=== PATIENT | female | born 1960 | race Two or more races ===

== ENCOUNTER 2025-04-25 09:53 | Outpatient (REF) | payer MEDICARE, SELFPAY ==
--- NOTE | 2025-04-25 09:59 | EMG_ITS ---
Chief complaint: Pruritus, numbness 4th and 5th digits bilateral, neck pain Reason for referral: Evaluate for Carpal Tunnel Syndrome, ulnar neuropathy versus cervical radiculopathy Referred by: Sayra AMANDA Procedure done: Bilateral upper extremities NCS/EMG Precautions and/or limitations: None The limb temperature was monitored continuously and remained between 32-36 degrees C during the performance of the NCS. Nerve Conduction Studies Anti Sensory Summary Table ?Stim Site NR Onset (ms) Norm Onset (ms) Peak (ms) Norm Peak (ms) O-P Amp (?V) Norm O-P Amp Site1 Site2 Delta-0 (ms) Dist (cm) Jimy (m/s) Norm Jimy (m/s) Left Median Anti Sensory (2nd Digit) Wrist ? 2.5 3.3 <3.6 19.0 >10 Wrist 2nd Digit 2.5 14.0 56 Right Median Anti Sensory (2nd Digit) Wrist ? 2.6 3.4 <3.6 40.3 >10 Wrist 2nd Digit 2.6 14.0 54 Right Radial Anti Sensory (Thumb) Forearm ? 1.8 2.3 <3.1 22.1 Forearm Thumb 1.8 0.0 Left Ulnar Anti Sensory (5th Digit) Wrist ? 2.4 3.6 <3.7 37.4 >15.0 Wrist 5th Digit 2.4 14.0 58 Right Ulnar Anti Sensory (5th Digit) Wrist ? 2.5 3.3 <3.7 36.5 >15.0 Wrist 5th Digit 2.5 14.0 56 Motor Summary Table ?Stim Site NR Onset (ms) Norm Onset (ms) O-P Amp (mV) Norm O-P Amp iAmp (mV) Amp (1st) (%) Site1 Site2 Delta-0 (ms) Dist (cm) Jimy (m/s) Norm Jimy (m/s) Left Median Motor (Abd Poll Brev) Wrist ? 3.4 <3.9 7.6 >4.5 8.8 100.0 Elbow Wrist 3.3 17.0 52 >45 Elbow ? 6.7 6.8 7.8 89.5 Right Median Motor (Abd Poll Brev) Wrist ? 3.4 <3.9 5.2 >4.5 6.3 100.0 Elbow Wrist 3.6 18.0 50 >45 Elbow ? 7.0 7.2 8.5 138.5 Left Ulnar Motor (Abd Dig Minimi) Wrist ? 2.6 <3.0 8.1 >5 9.5 100.0 B Elbow Wrist 2.6 16.0 62 >45 B Elbow ? 5.2 6.7 8.2 82.7 A Elbow B Elbow 1.6 10.0 63 >45 A Elbow ? 6.8 6.6 8.1 81.5 Right Ulnar Motor (Abd Dig Minimi) Wrist ? 3.0 <3.0 9.5 >5 11.1 100.0 B Elbow Wrist 2.7 15.5 57 >45 B Elbow ? 5.7 7.0 8.6 73.7 A Elbow B Elbow 1.5 10.0 67 >45 A Elbow ? 7.2 7.0 8.5 73.7 EMG ?Side Muscle Nerve Root Ins Act Fibs Psw Amp Dur Poly Recrt Int Pat Comment Right 1stDorInt Ulnar C8-T1 Nml Nml Nml Nml Nml 0 Nml Complete Right FlexCarpiUln Ulnar C8,T1 Nml Nml Nml Nml Nml 0 Nml Complete Right Biceps Musculocut C5-6 Nml Nml Nml Nml Nml 0 Nml Complete Right Triceps Radial C6-7-8 Nml Nml Nml Nml Nml 0 Nml Complete Right Deltoid Axillary C5-6 Nml Nml Nml Nml Nml 0 Nml Complete Left 1stDorInt Ulnar C8-T1 Incr 1+ 1+ Nml Nml 0 Nml Complete Left FlexCarpiUln Ulnar C8,T1 Nml Nml Nml Nml Nml 0 Nml Complete Left Biceps Musculocut C5-6 Nml Nml Nml Nml Nml 0 Nml Complete Left Triceps Radial C6-7-8 Nml Nml Nml Nml Nml 0 Nml Complete Left Deltoid Axillary C5-6 Nml Nml Nml Nml Nml 0 Nml Complete Left ExtIndicis Radial (Post Int) C7-8 Nml Nml Nml Nml Nml 0 Nml Complete Paraspinal EMG ?Side Muscle Nerve Root Ins Act Fibs Psw Comment Right Cervical Upper Rami Nml Nml Nml Right Cervical Mid Rami Nml Nml Nml Right Cervical Lower Rami Nml Nml Nml Left Cervical Upper Rami Nml Nml Nml Left Cervical Mid Rami Nml Nml Nml Left Cervical Lower Rami Incr 1+ 1+ FINDINGS: All motor and sensory nerves tested showed normal latencies, amplitudes and conduction velocities. Concentric needle EMG was performed in selected muscles of the bilateral upper extremity and cervical paraspinals. Study revealed signs of electric abnormalities as shown in the table above. Left FDI showed increased insertional activity, PSWs and fibrillations. Left lower cervical paraspinals showed increased insertional activity, PSWs and fibrillations. IMPRESSION: 1. This is an abnormal study. 2. There is electrodiagnostic evidence for left C8-T1 radiculopathy. 3. There is no electrodiagnostic evidence for median neuropathy, ulnar neuropathy, or brachial plexopathy. Thank you for your kind referral. Janeth Christopher MD, NOEL Board Certified, [place] [employer] (ABPMR) Board Certified, [place] [employer] Electro[employer] (ABEM) CODIN [phone] x 2 MTDD
== END 2025-04-25 09:54 | disposition home or self-care (01) ==
LOC: HO.NEURO 09:53
PROVIDERS: PCP Internal Medicine; Visit Provider Physician Assistant
DX: G56.03 Carpal tunnel syndrome, bilateral upper limbs (principal)
CPT/HCPCS: 95886; 95911

== ENCOUNTER → 2025-04-25 09:59 | Outpatient (BNV) | payer MEDICARE, SELFPAY | PROVIDERS: PCP Internal Medicine; Visit Provider Physical Medicine & Rehabilitation | DX: M54.12 Radiculopathy, cervical region (principal) | CPT/HCPCS: 95886; 95911 ==